=== PATIENT | female | born 1955 | race Asian ===

== ENCOUNTER 2022-03-04 07:09 | Day surgery (SDC) | payer OTHER ==
[2022-03-02 11:17] VITALS: BMI 27.6
[2022-03-04] MEDS ORDERED: PROPOFOL 20 ML ONE ×2 (07:28→07:29)
[2022-03-04] MEDS ORDERED: LIDOCAINE HCL/PF 2% SDV 5ML VIAL ONE (08:04)
[2022-03-04 09:44] VITALS: BP 122/70; PULSE 81; RESP 20; TEMP 97.5
== END 2022-03-04 09:44 | disposition home or self-care (01) ==
LOC: FASU-ENDO 07:09
PROVIDERS: ATTEND Internal Medicine Gastroenterology
PROC: 0DB68ZX Excision of Stomach, Via Natural or Artificial Opening Endoscopic, Diagnostic (ICD-10-PCS; 2022-03-04)
PROC: 0DB28ZX Excision of Middle Esophagus, Via Natural or Artificial Opening Endoscopic, Diagnostic (ICD-10-PCS; 2022-03-04)
PROC: 0DB48ZX Excision of Esophagogastric Junction, Via Natural or Artificial Opening Endoscopic, Diagnostic (ICD-10-PCS; 2022-03-04)
PROC: 0DB98ZX Excision of Duodenum, Via Natural or Artificial Opening Endoscopic, Diagnostic (ICD-10-PCS; principal; 2022-03-04 08:24)
DX: K20.90 Esophagitis, unspecified without bleeding (principal); K31.9 Disease of stomach and duodenum, unspecified; R10.13 Epigastric pain; R10.10 Upper abdominal pain, unspecified
CPT/HCPCS: 82962; 88305-TC; 88342-TC